=== PATIENT | male | born 1940 | race Caucasian/White ===

== ENCOUNTER 2017-08-22 11:32 | Emergency (ER) | payer OTHER ==
[2017-08-22 11:36] VITALS: BP 176/101; PULSE 89; RESP 18; TEMP 98.2; O2SAT 97
--- NOTE | 2017-08-22 12:29 | EDPHY ---
H & P Stated Complaint: Dx'd w/ shingles on abd last Mon;site is painful; sent for eval Time Seen by Provider: 08/22/17 11:40 HPI/ROS: CHIEF COMPLAINT: Abdominal pain HISTORY OF PRESENT ILLNESS: The patient presents to the ED with complaints of vague abdominal pain for the past several days. The patient was diagnosed with shingles approximately week ago. He has been on acyclovir and oral pain medications. The patient reports he has not had a bowel movement since Monday and wonders of constipation may be contributing to his symptoms. The patient denies any hematemesis or melena. He denies any additional acute complaints. REVIEW OF SYSTEMS: A comprehensive 10 point review of systems is otherwise negative aside from elements mentioned in the history of present illness. Source: Patient Exam Limitations: No limitations - Personal History Current Tetanus Diphtheria and Acellular Pertussis (TDAP): Yes - Medical/Surgical History Hx Cardiac Disease: Yes Other PMH: card stent. HTN. cholesterol - Social History Smoking Status: Never smoked - Physical Exam Exam: General Appearance: Alert, no distress Eyes: Pupils equal and round no pallor or injection ENT, Mouth: Mucous membranes moist Respiratory: There are no retractions, lungs are clear to auscultation Cardiovascular: Regular rate and rhythm Gastrointestinal: Abdomen is soft and nontender, no masses, bowel sounds normal Neurological: A&O, normal motor function, normal sensory exam, normal cranial nerves Skin: Rash consistent with zoster is noted along the left abdomen and flank Musculoskeletal: Neck is supple nontender Extremities: symmetrical, full range of motion Constitutional: Initial Vital Signs Temperature (C) 36.8 C 08/22/17 11:32 Heart Rate 89 08/22/17 11:32 Respiratory Rate 18 08/22/17 11:32 Blood Pressure 176/101 H 08/22/17 11:32 O2 Sat (%) 97 08/22/17 11:32 O2 Delivery Mode Room Air Allergies/Adverse Reactions: No Known Drug Allergies Allergy (Unknown, Verified 01/22/10 07:31) Unknown Home Medications: Medication Instructions Recorded Atorvastatin Calcium [Lipitor 80 80 mg PO DAILY 01/23/13 mg] Clopidogrel Bisulfate [Plavix (RX)] 75 mg PO DAILY 01/23/13 Lisinopril [Zestril 2.5 mg (RX)] 2.5 mg PO DAILY 01/23/13 Atorvastatin Calcium 08/08/15 Cephalexin [Keflex] 500 mg PO QID 6 Days cap 08/08/15 Clopidogrel 08/08/15 Lisinopril 08/08/15 Acyclovir [Zovirax 200 mg (*)] 200 mg PO 08/22/17 Medical Decision Making ED Course/Re-evaluation: The patient presents the ED with complaints of vague abdominal pain and discomfort following a recent diagnosis of shingles. The patient is noted to be in no acute distress. I find his abdominal examination to be soft and benign. There is no evidence of an acute abdomen. The patient does report symptoms of constipation which are confirmed on a KUB in the emergency department today. At this point time I am going to recommend that the patient begin milk of magnesia as I believe constipation is a likely etiology of his discomfort today. The patient is currently on pain medications. He is advised to use MiraLax or milk of magnesia as needed for first-line therapy. The patient will be advised to continue his regular medications for shingles. He should return to the ED for markedly worsening pain, fever, vomiting or other concerns. Differential Diagnosis: Differential diagnosis considered includes post herpetic neuralgia, perforation , constipation Departure - Departure Disposition: Home, Routine, Self-Care Clinical Impression: Shingles, Constipation Condition: Good Instructions: Constipation (ED) Additional Instructions: 1. I recommend first trying a laxative like milk of magnesia for likely constipation. If this is unsuccessful you can try a stronger laxative like Dulcolax. 2. Return to the emergency department for severe abdominal pain, vomiting, fever or other concerns. 3. Please continue your regular medications as prescribed for shingles. 4. Please follow-up with your primary care provider as needed. Referrals: RADHA HENDRICKSON [Primary Care Provider] - As per Instructions
== END 2017-08-22 14:01 | disposition home or self-care (01) ==
DX: K59.00 Constipation, unspecified (principal); B02.9 Zoster without complications; I10 Essential (primary) hypertension; Z95.5 Presence of coronary angioplasty implant and graft

== ENCOUNTER → 2017-12-21 | Outpatient (CLI) | payer OTHER | DX: I25.10 Atherosclerotic heart disease of native coronary artery without angina pectoris (principal); I10 Essential (primary) hypertension; E78.5 Hyperlipidemia, unspecified ==